=== PATIENT | male | born 2000 | race Two or more races ===

== ENCOUNTER 2025-01-10 01:43 | Emergency (ER) | payer OTHER, SELFPAY ==
[2025-01-10 01:51] VITALS: BP 149/91; PULSE 103; RESP 18; TEMP 36.9; O2SAT 97
--- NOTE | 2025-01-10 02:04 | XR_ITS ---
Examination: Hand, right radius Technique: Hand AP, oblique, lateral 3 views Date and time of exam: January 10, 2025: 01 07 hours INDICATIONS: Punching injury to the hand, hand pain FINDINGS: Acute fractures proximal aspects fifth and fourth metacarpals No significant offset No foreign bodies IMPRESSION: Acute fractures fourth and fifth metacarpals
[2025-01-10] MEDS: HYDROcodone/APAP 5/325 TABLET 1 TAB PO (02:59)
[2025-01-10 03:03] VITALS: RESP 18
--- NOTE | 2025-01-10 05:12 | EDNOTE_ITS ---
Upper Extremity Injury RME/HPI General Chief Complaint: Hand/Wrist Problems Stated Complaint: RIGHT HAND INJURY Time Seen by Provider: 01/10/25 02:03 Arrival date/time: 01/10/25 01:43 24M with history of asthma presents to ED with R hand pain after he punched a wall because he was mad. Patient has had a tetanus shot in the past 5 years. Limitations: no limitations Related Data Allergies Allergy/AdvReac Type Severity Reaction Status Date / Time No Known Allergies Allergy Verified 01/10/25 01:44 Review of Systems Musculoskeletal Musculoskeletal: Reports as per HPI, Reports arthralgias and Reports joint swelling Past Medical History Past Medical History CARDIAC: Negative Congestive Heart Failure RESPIRATORY: Positive Asthma; Negative Chronic Obstructive Pulmonary Disease (COPD) GENITOURINARY: Negative Renal Disease ENDOCRINE: Negative Diabetes Mellitus Type 1 or Diabetes Mellitus Type 2 Social History SMOKING STATUS: Never smoker ED Exam General Limitations: Present no limitations General appearance: Present alert and in no apparent distress Head Head exam: Present atraumatic Eye Eye exam: Present normal appearance, PERRL and EOMI ENT ENT exam: Present normal exam, normal oropharynx and mucous membranes moist Neck Neck exam: Present normal inspection, full ROM and trachea midline Chest Chest inspection: Present normal inspection and symmetric chest wall rise Respiratory Respiratory exam: Present normal lung sounds bilaterally Cardiovascular Cardiovascular exam: Present regular rate, normal rhythm and normal heart sounds Abdominal Exam Abdominal exam: Present soft and normal bowel sounds Extremities Exam Extremities exam: Present full ROM Expanded Upper Extremity Exam Hand exam: Present full ROM (R hand), tenderness, swelling and abrasion Back Exam Back exam: Present normal inspection and full ROM Neurological Exam Neurological exam: Present alert, oriented X3 and CN II-XII intact Psychiatric Psychiatric exam: Present normal affect and normal mood Skin Skin exam: Present warm, dry, intact and normal color Course Quality Measures none Orders Category Date Time Status Splint / Immobilizer STAT Care 01/10/25 02:44 Completed Wound Care NOW Care 01/10/25 02:04 Completed XR hand comp RT min 3V Stat Exams 01/10/25 02:04 Taken HYDROcodone*/APAP 5/325 [[place] 5/325] Med 01/10/25 02:52 Discontinued 1 tab PO X1 ONE Vital Signs Vital signs: Vital Signs Temperature 98.5 F 01/10/25 01:51 Pulse Rate 103 H 01/10/25 01:51 Respiratory Rate 18 01/10/25 01:51 Blood Pressure 149/91 H 01/10/25 01:51 Pulse Oximetry (%) 97 01/10/25 01:51 Oxygen Delivery Method Room Air 01/10/25 01:51 O2 at 97% on RA and WNLs Extremity Injury MDM Narrative MDM Narrative:: 24M with history of asthma presents to ED with R hand pain after he punched a wall because he was mad. Patient has had a tetanus shot in the past 5 years. Physical exam reveals R hand (primarily 4th and 5th digits) swelling and tenderness. ROM mostly intact. Mild skin abrasion on knuckles. Patient is afebrile, calm, and alert. Abrasion clean/irrigated. Wet XR read reveals non-displaced 4th and 5th base metacarpal fxs pending official report. Given splint and counseling psychologist. Patient is from [place] and in the so he will find his own orthopedist. Patient data External records reviewed:: None Clinical information provided by:: patient Social determinants that could affect healthcare access:: none Patient has the following chronic illnesses:: asthma How is presenting disease/condition affected by chronic disease/condition?: uneffected by Evaluation data The following diagnostics were reviewed and interpreted by me:: radiology exam(s) Lab and/or radiology exams considered but not ordered:: ordered Interpretation Summary: above Medications / Prescriptions Medications or Prescriptions considered but not ordered:: ordered Medication administrations:: Medication Administration History Discontinued Medications Hydrocodone Bitart/Acetaminophen (Hydrocodone/Apap 5/325 Tablet) 1 tab PO X1 ONE Stop: 01/10/25 02:53 Last Admin: 01/10/25 02:59 Dose: 1 tab Documented By: CVL above Consultations Consultation(s) initiated? (list below): No Diagnosis Upper Extremity Injury Differential Diagnosis: sprain and strain of wrist, fracture of wrist, finger sprain, dislocation of finger, Colles' fracture and fracture of hand Most likely diagnosis given after review of the tests above:: hand fx Admission Indicated Admission indicated?: not indicated Admission Request Was there a request for admission?: No Disposition Plan Disposition Plan: Discharge Discharge Attestation Discharge Attestation: The patient and all family members were given an opportunity to ask questions and understood the discharge instructions. Discharge instructions specifically effects, indications for sooner follow up or return to the emergency department, and the expected course of current diagnosis. Patient condition: Stable Discharge Plan Plan Patient Disposition: HOME (Self Care) Disposition Comment: Stable Prescriptions/Referrals Referrals: No Primary/Family,Physician [Primary Care Provider] - In 1 week Problem List Clinical Impression: Fracture of hand Patient/Caregiver Discharge Instructions Education Materials: ED Fracture, Upper Extremity Additional Instructions: Please follow-up with PCP within 24-48 hours and return immediately if symptoms worsen. Make sure to keep disk. Print Language: Syriac Stand Alone Forms: Patient Portal Info Letter PA/REWRITER Supervising Physician FANTA/ANSHU Supervising Physician: Dr. Rothman
== END 2025-01-10 03:04 | disposition home or self-care (01) ==
PROVIDERS: Emergency Provider Emergency Medicine
DX: S62.304A Unspecified fracture of fourth metacarpal bone, right hand, initial encounter for closed fracture (principal); S62.306A Unspecified fracture of fifth metacarpal bone, right hand, initial encounter for closed fracture; J45.909 Unspecified asthma, uncomplicated; W22.01XA Walked into wall, initial encounter
CPT/HCPCS: 29126; 73130; 99283; A9270